=== PATIENT | female | born 1960 | race Caucasian/White ===

== ENCOUNTER 2018-03-27 11:14 | Observation (INO) | payer SELFPAY ==
[~2018-03-27] VITALS: Ht 157.5 cm; Wt 165.9 kg
[2018-03-27 12:02] LABS: BASO # 0.1 (0.0-0.2); BASO % 0.4 % (0.0-2.0); EOS # 0.1 (0.0-0.7); GRAN # 10.6 (1.4-6.5); GRAN % 78.7 % (42.2-75.2); LYMPH # 1.7 (1.2-3.4); LYMPH % 12.7 % (20.0-51.0); MEAN CELL VOLUME 89 fl (80.0-100.0); MEAN CORPUSCULAR HGB CONC 32 g/dl (33.0-37.0); MEAN PLATELET VOLUME 10.5 fl (7.4-10.4); MONO # 0.8 (0.1-0.6); PLATELET COUNT 276 K/mm3 (130-400); RED BLOOD COUNT 3.77 M/mm3 (4.10-5.30); REDCELL DISTRIBUTION WIDTH-CV 19.5 % (11.5-14.5)
[2018-03-27 12:03] LABS: HEMATOCRIT 33.7 % (37.0-47.0); HEMOGLOBIN 10.6 g/dl (12.5-16.0); MEAN CORPUSCULAR HEMOGLOBIN 28 pg (27.0-31.0)
[2018-03-27 12:05] LABS: ALANINE AMINOTRANSFERASE 34 U/L (9-52); ALBUMIN 3.9 gm/dL (3.5-5.0); ALKALINE PHOSPHATASE 115 U/L (50-136); ANION GAP 15 mmol/L (7-16); AST,SGOT 36 U/L (15-37); BILIRUBIN,TOTAL 0.5 mg/dL (0.0-1.0); BLOOD UREA NITROGEN 11 mg/dL (7-17); CARBON DIOXIDE 26 mmol/L (22-30); CHLORIDE 100 mmol/L (98-107); CREATINE KINASE 69 U/L (30-135); CREATININE, serum 0.65 mg/dL (0.52-1.25); GLUCOSE 100 mg/dL (74-106); LIPASE 32 U/L (23-300); POTASSIUM 4.1 mmol/L (3.4-5.0); SODIUM 140 mmol/L (137-145)
[2018-03-27] MEDS ORDERED: LEVOXYL0.025 MG PO (12:14)
[2018-03-27] MEDS ORDERED: SYNTHROID 0.0.025 MG PO (12:15)
[2018-03-27] MEDS ORDERED: CYMBALTA 60MG60 MG PO (12:15)
[2018-03-27] MEDS ORDERED: WELLBUTRIN XL300 M1 PO (12:16)
[2018-03-27 12:17] LABS: TROPONIN-I < 0.012 ng/mL (0.000-0.034)
[2018-03-27] MEDS ORDERED: GLUCOPHAGE500 MG/TAB PO (12:17)
[2018-03-27 13:19] LABS: COLLECTION METHOD CLEAN CATCH
[2018-03-27 13:27] LABS: MUCOUS Present /lpf; PH 6 (5-8); URINE APPEARANCE Clear; URINE BACTERIA None Seen /hpf; URINE BILIRUBIN Negative (NEGATIVE); URINE BLOOD Negative (NEGATIVE); URINE COLOR Yellow; URINE GLUCOSE Negative (NEGATIVE); URINE KETONE Negative (NEGATIVE); URINE LEUKOCYTE ESTERASE Negative (NEGATIVE); URINE NITRATE Negative (NEGATIVE); URINE PROTEIN(semi-quant) Negative (NEGATIVE); URINE RBC 0-2 /hpf; URINE UROBILINOGEN Negative (NEGATIVE)
[2018-03-27 16:11] VITALS: BP 159/92; PULSE 106; TEMP 98.1
[2018-03-27] MEDS ORDERED: KLONOPIN 0.5MG0.5 MG PO (16:53)
[2018-03-27] MEDS ORDERED: CYTOMEL 5MC5 MCG/TAB PO (16:54)
[2018-03-27] MEDS ORDERED: DESYREL DIVIDO150 M1 PO (16:54)
[2018-03-27] MEDS ORDERED: SYNTHROID0.05 MG/TA PO (16:55)
[2018-03-27 17:04] LABS: INR 1.1 (0.8-3.0); PROTHROMBIN TIME 12.9 SECONDS (9.7-12.8)
[2018-03-27 18:51] VITALS: BP 159/97; PULSE 109; TEMP 97.8
[2018-03-27 19:37] VITALS: BP 134/87; PULSE 94; TEMP 97.5
[2018-03-28 00:21] VITALS: BP 148/92; PULSE 95; TEMP 97.8
[2018-03-28 04:44] VITALS: BP 141/83; PULSE 84; TEMP 97.5
[2018-03-28 06:36] LABS: BASO # 0.1 (0.0-0.2); BASO % 0.6 % (0.0-2.0); EOS # 0.2 (0.0-0.7); EOS % 1.5 % (0-4.0); GRAN # 7.5 (1.4-6.5); GRAN % 71.9 % (42.2-75.2); LYMPH # 1.9 (1.2-3.4); LYMPH % 17.9 % (20.0-51.0); MEAN CELL VOLUME 90 fl (80.0-100.0); MEAN CORPUSCULAR HGB CONC 31 g/dl (33.0-37.0); MEAN PLATELET VOLUME 10.3 fl (7.4-10.4); MONO # 0.7 (0.1-0.6); MONO % 7.1 % (1.7-9.3); PLATELET COUNT 262 K/mm3 (130-400); RED BLOOD COUNT 3.72 M/mm3 (4.10-5.30); REDCELL DISTRIBUTION WIDTH-CV 19.5 % (11.5-14.5)
[2018-03-28 07:03] LABS: ANION GAP 10 mmol/L (7-16); BLOOD UREA NITROGEN 12 mg/dL (7-17); CALCIUM 8.8 mg/dL (8.4-10.2); CARBON DIOXIDE 32 mmol/L (22-30); CHLORIDE 97 mmol/L (98-107); CREATININE, serum 0.72 mg/dL (0.52-1.25); GLUCOSE 90 mg/dL (74-106); HEMATOCRIT 33.3 % (37.0-47.0); HEMOGLOBIN 10.4 g/dl (12.5-16.0); MEAN CORPUSCULAR HEMOGLOBIN 28 pg (27.0-31.0); SODIUM 139 mmol/L (137-145)
[2018-03-28 07:04] LABS: TROPONIN-I < 0.012 ng/mL (0.000-0.034)
[2018-03-28 07:26] VITALS: BP 135/89; PULSE 89; TEMP 98
[2018-03-28 11:18] VITALS: BP 153/80; PULSE 98; TEMP 98
[2018-03-28 14:42] VITALS: BP 147/86; PULSE 103; TEMP 97.9
[2018-03-28 20:00] VITALS: BP 152/85; PULSE 102; TEMP 98.1
[2018-03-29] VITALS: BP 135/75; PULSE 98; TEMP 97.6
[2018-03-29 04:00] VITALS: BP 154/75; PULSE 107; TEMP 97.5
[2018-03-29 07:09] LABS: CALCIUM 8.9 mg/dL (8.4-10.2); CREATININE, serum 0.76 mg/dL (0.52-1.25); POTASSIUM 3.7 mmol/L (3.4-5.0)
[2018-03-29 07:45] VITALS: BP 142/92; PULSE 96; TEMP 97.8
[2018-03-29 11:09] VITALS: BP 142/90; PULSE 96; TEMP 97.9
[2018-03-29] MEDS ORDERED: LASIX 20MG TABL20 MG PO (15:01)
[2018-03-29 16:07] VITALS: BP 153/104; PULSE 108; TEMP 98.4
== END 2018-03-29 18:38 | disposition home or self-care (01) ==
LOC: COL.ER 11:14 → SURG 14:12
PROVIDERS: Emergency Medicine; Internal Medicine; Physician Assistant
DX: R06.09 Other forms of dyspnea (principal); G47.33 Obstructive sleep apnea (adult) (pediatric); R09.02 Hypoxemia; R09.89 Other specified symptoms and signs involving the circulatory and respiratory systems; D72.829 Elevated white blood cell count, unspecified; F32.9 Major depressive disorder, single episode, unspecified; D72.828 Other elevated white blood cell count; D64.9 Anemia, unspecified; R73.03 Prediabetes; E66.9 Obesity, unspecified; Z68.30 Body mass index [BMI] 30.0-30.9, adult; Z79.84 Long term (current) use of oral hypoglycemic drugs; Z90.710 Acquired absence of both cervix and uterus; Z90.49 Acquired absence of other specified parts of digestive tract; Z82.49 Family history of ischemic heart disease and other diseases of the circulatory system; Z88.2 Allergy status to sulfonamides; Z87.891 Personal history of nicotine dependence; Z88.0 Allergy status to penicillin
CPT/HCPCS: 99223-AI; 99232-AI; 99239; G0378; G8978-GP; G8979-GP; J1650; J1940; Q9967

== ENCOUNTER → 2018-04-13 | Outpatient (CLI) | payer OTHER ==
[~2018-04-13] MED LIST: CYMBALTA 60MG60 MG PO; CYTOMEL 5MC5 MCG/TAB PO; DESYREL DIVIDO150 M1 PO; GLUCOPHAGE500 MG/TAB PO; KLONOPIN 0.5MG0.5 MG PO; LASIX 20MG TABL20 MG PO; LEVOXYL0.025 MG PO; SYNTHROID 0.0.025 MG PO; SYNTHROID0.05 MG/TA PO; WELLBUTRIN XL300 M1 PO
[2018-04-13 17:48] LABS: CALCIUM 9.9 mg/dL (8.4-10.2); CREATININE, serum 0.91 mg/dL (0.52-1.25); POTASSIUM 3.9 mmol/L (3.4-5.0)
== END ==
LOC: COL.LAB 16:54
PROVIDERS: Internal Medicine
DX: I50.9 Heart failure, unspecified (principal); E87.6 Hypokalemia

== ENCOUNTER → 2018-04-25 | Outpatient (CLI) | payer OTHER | LOC: COL.RAD 09:32 | DX: Z02.71 Encounter for disability determination (principal); M17.12 Unilateral primary osteoarthritis, left knee ==